=== PATIENT | male | born 1965 | race African-American/Black ===

== ENCOUNTER 2016-11-04 12:35 | Inpatient (IN) | payer OTHER ==
[2016-11-04 13:31] VITALS: BMI 23.6
--- NOTE | 2016-11-04 14:59 | HP ---
COWS - Scale Resting Pulse: 1= NE 81-100 Sweatin=Flushed/Facial Moisture Restless Observation: 3= Extraneous Movement Pupil Size: 2= Moderately Dilated Bone or Joint Aches: 2= Severe Diffuse Aches Runny Nose/ Eye Tearin= Runny Nose/Eyes GI Upset > 30mins: 3= Vomiting/Diarrhea Tremor Observation: 2= Slight Tremor Visible Yawning Observation: 2= >3x During Session Anxiety or Irritability: 2=Irritable/Anxious Goose Flesh Skin: 0=Smooth Skin COWS Score: 21 CIWA Score - CIWA Score Nausea/Vomitin Muscle Tremors: 3 Anxiety: 3 Agitation: 3 Paroxysmal Sweats: 2 Orientation: 0-Oriented Tacttile Disturbances: 2-Mild Itch/Numbness/Burn Auditory Disturbances: 2-Mild Harshness/Frighten Visual Disturbances: 2-Mild Sensitivity Headache: 2-Mild CIWA-Ar Total Score: 22 Admission ROS BHS - HPI Chief Complaint: I NEED HELP TO STOP USING HEROIN,ALCOHOL AND COCAINE Allergies/Adverse Reactions: Allergies Allergy/AdvReac Type Severity Reaction Status Date / Time No Known Allergies Allergy Verified 11/04/16 14:50 History of Present Illness: THIS 51 YEARS OLD MALE WITH HEROIN,COCAINE AND ALCOHOL DEPENDENCE,WITHDRAWAL SYMPTOM,LAST DETOX [facility] 09/09 MULTIPLE ADMISSIONS IN DETOX HTN ASTHMA LONGEST PERIOD FOR 6 YEARS Exam Limitations: No Limitations - Ebola screening Have you traveled outside of the country in the last 21 days: No Have you had contact with anyone from an Ebola affected area: No Have you been sick,other than usual withdrawal symptoms: No Do you have a fever: No - Review of Systems Constitutional: Chills, Diaphoresis, Loss of Appetite, Malaise, Night Sweats, Changes in sleep, Weakness, Unintentional Wgt. Loss EENT: reports: Tearing, Nose Congestion Cardiac: reports: No Symptoms Reported GI: reports: Diarrhea, Nausea, Vomiting, Abdominal cramping : reports: No Symptoms Reported Musculoskeletal: reports: Back Pain, Muscle Pain Integumentary: reports: Dryness Neuro: reports: Headache, Tremors Endocrine: reports: No Symptoms Reported Hematology: reports: No Symptoms Reported Psychiatric: reports: Anxious, Depressed, other (INSOMNIA) Patient History - Patient Medical History Hx Anemia: No Hx Asthma: No Hx Chronic Obstructive Pulmonary Disease (COPD): No Hx Cancer: No Hx Cardiac Disorders: No Hx Congestive Heart Failure: No Hx Hypertension: Yes (non compliance) Hx Hypercholesterolemia: No Hx Pacemaker: No HX Cerebrovascular Accident: No Hx Seizures: No Hx Dementia: No Hx Diabetes: No Hx Gastrointestinal Disorders: No Hx Liver Disease: No Hx Genitourinary Disorders: No Hx Sexually Transmitted Disorders: No Hx Renal Disease (ESRD): No Hx Thyroid Disease: No Hx Human Immunodeficiency Virus (HIV): No (LAST 08/10) Hx Hepatitis C: No Hx Depression: Yes (SEROQUEL IN THE PAST) Hx Suicide Attempt: No Hx Bipolar Disorder: Yes Hx Schizophrenia: No Other Medical History: NO SUICIDAL,NO HOMICIDAL - Patient Surgical History Past Surgical History: No Hx Neurologic Surgery: No Hx Cataract Extraction: No Hx Cardiac Surgery: No Hx Lung Surgery: No Hx Breast Surgery: No Hx Breast Biopsy: No Hx Abdominal Surgery: No Hx Appendectomy: No Hx Cholecystectomy: No Hx Genitourinary Surgery: No Hx Section: No Hx Orthopedic Surgery: No Anesthesia Reaction: No - PPD History Previous Implant?: Yes Documented Results: Negative w/proof Implanted On Prior [facility] Admission?: Yes Date: 12/21/15 Results: 0 mm PPD to be Administered?: No - Smoking Cessation Smoking history: Current every day smoker Have you smoked in the past 12 months: Yes Aproximately how many cigarettes per day: 15 Hx Chewing Tobacco Use: No Initiated information on smoking cessation: Yes 'Breaking Loose' booklet given: 11/04/16 - Substance & Tx. History Hx Alcohol Use: Yes Hx Substance Use: Yes Substance Use Type: Alcohol, Cocaine, Heroin Hx Substance Use Treatment: Yes ([facility] 09/09) Family Disease History - Family Disease History Family Disease History: Diabetes: Grandparent, CA: Mother (BONE CA.), Other: Father (GOUT,CATARACT), Brother (ASTHMA) Admission Physical Exam BHS - Vital Signs Vital Signs: Vital Signs - 24 hr 11/04/16 13:28 Temperature 96 F L Pulse Rate 83 Respiratory 18 Rate Blood Pressure 154/92 - Physical General Appearance: Yes: Moderate Distress, Tremorous, Irritable, Sweating, Anxious HEENTM: Yes: Nasal Congestion Respiratory: Yes: Lungs Clear Neck: Yes: Within Normal Limits Breast: Yes: Within Normal Limits Cardiology: Yes: Within Normal Limits, Regular Rhythm, Regular Rate, S1, S2 Abdominal: Yes: Normal Bowel Sounds, Non Tender, Flat, Soft, Organomegaly Genitourinary: Yes: Within Normal Limits Back: Yes: Muscle Spasm Musculoskeletal: Yes: Joint Stiffness, Muscle Pain Extremities: Yes: Tremors Neurological: Yes: Within Normal Limits, broach grinder II-XII NML intact, Fully Oriented, Alert, Motor Strength 5/5 Integumentary: Yes: Dry Lymphatic: Yes: Within Normal Limits - Diagnostic (1) Alcohol dependence with uncomplicated withdrawal Current Visit: No Status: Acute (2) Cocaine dependence Current Visit: No Status: Acute Qualifiers: Substance use status: uncomplicated Qualified Code(s): F14.20 - Cocaine dependence, uncomplicated (3) Insomnia Current Visit: No Status: Acute (4) Nicotine dependence Current Visit: No Status: Acute Qualifiers: Nicotine product type: cigarettes Substance use status: uncomplicated Qualified Code(s): F17.210 - Nicotine dependence, cigarettes, uncomplicated (5) Opioid dependence with withdrawal Current Visit: No Status: Acute (6) Hypertension Current Visit: No Status: Chronic Qualifiers: Hypertension type: essential hypertension Qualified Code(s): I10 - Essential (primary) hypertension (7) PTSD (post-traumatic stress disorder) Current Visit: No Status: Suspected Comment: Historical diagnosis. (8) Anxiety and depression Current Visit: Yes Status: Acute Cleared for Admission [facility] - Detox or Rehab [facility] Level of Care: Medically Managed Detox Regimen/Protocol: Methadone/Librium S Breath Alcohol Content Breath Alcohol Content: 0 Urine Drug Screen - Results Drug Screen Negative: No Urine Drug Screen Results: CECI-Cocaine, OPI-Opiates, BZO-Benzodiazepines, MTD- Methadone, TCA-Tricyclic Antidepress
[2016-11-04] MEDS ORDERED: P-EPHED 60MG/TRIPROLIDI 2.5MG TABLET PO PRN (15:10)
[2016-11-04] MEDS ORDERED: IBUPROFEN 400 MG TABLET (FP) PO PRN (15:10)
[2016-11-04] MEDS ORDERED: guaiFENesin/D-METHORPHAN HB 10 ML UNIT-DOSE CUPS PO PRN (15:10)
[2016-11-04] MEDS ORDERED: diphenhydrAMINE HCL 50 MG CAPSULE PO PRN (15:10)
[2016-11-04] MEDS ORDERED: MAG HYDROX/AL HYDROX/SIMETH 30 ML UNIT-DOSE CUP PO PRN (15:10)
[2016-11-04] MEDS ORDERED: ACETAMINOPHEN 325 MG TABLET (FP) PO PRN (15:10)
[2016-11-04] MEDS ORDERED: MAGNESIUM CITRATE 300 ML BOTTLE PO PRN (15:10)
[2016-11-04] MEDS ORDERED: MAGNESIUM HYDROX 2400MG/30ML ORAL SUSPENSION 30 ML CUP PO PRN (15:10)
[2016-11-04] MEDS ORDERED: hydrOXYzine PAMOATE 25 MG CAPSULE (FP) PO PRN (15:10)
[2016-11-04] MEDS ORDERED: MENTHOL/PHENOL 1 EACH UD MM PRN (15:10)
[2016-11-04] MEDS ORDERED: chlordiazePOXIDE HCL 25 MG CAPSULE PO PRN (15:10)
[2016-11-04] MEDS ORDERED: LOPERAMIDE HCL 2 MG CAPSULE PO PRN (15:10)
[2016-11-04] MEDS ORDERED: ALBUTEROL SO4 6.7 GM HFA INHALER IH PRN (15:16)
[2016-11-04] MEDS ORDERED: CYCLOBENZAPRINE HCL 10 MG TABLET (FP) PO PRN (15:18)
[2016-11-04] MEDS ORDERED: METHADONE HCL 10 MG TABLET (FOR DETOX USE ONLY) PO ONE ×2 (15:45→23:00)
[2016-11-04] MEDS ORDERED: chlordiazePOXIDE HCL 25 MG CAPSULE PO ONE (15:45)
--- NOTE | 2016-11-04 17:42 | CONSULT ---
[facility] Psychiatric Consult - Data Date of interview: 11/04/16 Admission source: [facility] Identifying data: Readmission to [facility] for this 51 y/o AA male seeking detox treatment on for alcohol,cocaine and heroin dependence.Patient is single,a father of two (lost a son in February 2016),homeless,currently unemployed and supported on food stamps. Substance Abuse History: - Smoking Cessation. Smoking history: Current every day smoker. Have you smoked in the past 12 months: Yes. Aproximately how many cigarettes per day: 15. Hx Chewing Tobacco Use: No. Initiated information on smoking cessation: Yes. 'Breaking Loose' booklet given: 11/04/16. - Substance & Tx. History. Hx Alcohol Use: Yes. Hx Substance Use: Yes. Substance Use Type : Alcohol, Cocaine, Heroin. Hx Substance Use Treatment: Yes ([facility] 09/09 ). Patient aknowledges this pattern of substance use in this interview. Medical History: Significant for a history of hypertension. Psychiatric History: History of multiple psychiatric hospitalizations ([facility] and [facility]) .Diagnosed with PTSD and MDD.Mr Mast is receiving outpatient psychiatric services at the [facility] program located in [facility].Medications: seroquel 50 mg/hs + ambien 10 mg/hs.Patient admits to weeks of non-adherence to this regimen.Denies suicide attempts. Physical/Sexual Abuse/Trauma History: Patient denies. Additional Comment: Urine Drug Screen Results: CECI-Cocaine, OPI-Opiates, BZO- Benzodiazepines, MTD-Methadone, TCA-Tricyclic Antidepressant.Noted. Mental Status Exam - Mental Status Exam Alert and Oriented to: Time, Place, Person Cognitive Function: Good Patient Appearance: Well Groomed Mood: Nervous, Anxious, Hopeful Affect: Mood Congruent Patient Behavior: Fatigued, Talkative, Appropriate, Cooperative Speech Pattern: Clear, Appropriate Voice Loudness: Normal Thought Process: Goal Oriented Thought Disorder: Not Present Hallucinations: Denies Suicidal Ideation: Denies Homicidal Ideation: Denies Insight/Judgement: Poor Sleep: Poorly, Difficulty falling asleep Appetite: Good Muscle strength/Tone: Normal Gait/Station: Normal Psychiatric Findings - Problem List (Stella 1, 2,3) (1) Alcohol dependence with uncomplicated withdrawal Current Visit: Yes Status: Acute (2) Cocaine dependence Current Visit: Yes Status: Acute Qualifiers: Substance use status: uncomplicated Qualified Code(s): F14.20 - Cocaine dependence, uncomplicated (3) Nicotine dependence Current Visit: Yes Status: Acute Qualifiers: Nicotine product type: cigarettes Substance use status: uncomplicated Qualified Code(s): F17.210 - Nicotine dependence, cigarettes, uncomplicated (4) Opioid dependence with withdrawal Current Visit: Yes Status: Acute (5) Sedative, hypnotic or anxiolytic abuse, continuous Current Visit: Yes Status: Acute (6) Insomnia Current Visit: No Status: Acute (7) Substance induced mood disorder Current Visit: Yes Status: Acute (8) PTSD (post-traumatic stress disorder) Current Visit: No Status: Suspected Comment: Historical diagnosis. - Initial Treatment Plan Initial Treatment Plan: Psycheducation.Detoxification in progress.Patient declines to take zoloft.Wants ambien 10 mg at bedtime.Ordered.Patient is made aware of the risk of parasomnias.Agrees with careplan.Observation.
[2016-11-04] MEDS: NICOTINE 21 MG/24 HOURS TOPICAL PATCH TD SCH (17:49)
[2016-11-04] MEDS: chlordiazePOXIDE HCL 25 MG CAPSULE PO SCH ×2 (17:49→22:32)
[2016-11-04] MEDS: cloNIDine HCL 0.1 MG TABLET PO SCH (22:33)
[2016-11-04] MEDS: THIAMINE HCL 100 MG TABLET (FP) PO SCH (22:33)
[2016-11-05 03:18] LABS: URINE APPEARANCE CLEAR; URINE BILIRUBIN NEGATIVE (NEGATIVE); URINE BLOOD NEGATIVE (NEGATIVE); URINE COLOR YELLOW; URINE GLUCOSE (UA) NEGATIVE (NEGATIVE); URINE KETONE NEGATIVE (NEGATIVE); URINE LEUK ESTERASE NEGATIVE (NEGATIVE); URINE NITRITE NEGATIVE (NEGATIVE); URINE PROTEIN NEGATIVE (NEGATIVE); URINE UROBILINOGEN NEGATIVE E.U./dl (0.2-1.0)
[2016-11-05] MEDS: chlordiazePOXIDE HCL 25 MG CAPSULE PO SCH ×4 (06:03→22:45)
[2016-11-05] MEDS ORDERED: METHADONE HCL 10 MG TABLET (FOR DETOX USE ONLY) PO SCH (10:00)
--- NOTE | 2016-11-05 10:26 | PN ---
S CIWA - CIWA Score Nausea/Vomitin Muscle Tremors: 3 Anxiety: 3 Agitation: 2 Paroxysmal Sweats: 1-Minimal Palms Moist Orientation: 0-Oriented Tacttile Disturbances: 1-Very Mild Itch/Numbness Auditory Disturbances: 1-Very Mild Visual Disturbances: 1-Very Mild Sensitivity Headache: 2-Mild CIWA-Ar Total Score: 17 BHS COWS - Scale Resting Pulse: 0= MD 80 or Below Sweatin=Flushed/Facial Moisture Restless Observation: 3= Extraneous Movement Pupil Size: 1= Pupils >than Normal Bone or Joint Aches: 2= Severe Diffuse Aches Runny Nose/ Eye Tearin= Runny Nose/Eyes GI Upset > 30mins: 3= Vomiting/Diarrhea Tremor Observation of Outstretched Hands: 2= Slight Tremor Visible Yawning Observation: 1= 1-2x During Session Anxiety or Irritability: 2=Irritable/Anxious Goose Flesh Skin: 0=Smooth Skin COWS Score: 18 [facility] Progress Note (SOAP) Subjective: ALRT,IRRITABLE,ANXIOUS,INTERRUPTED SLEEP,TREMOR,PAIN IN THE BODY AND BACK Objective: 11/05/16 10:25 Vital Signs Temperature 97.8 F 11/05/16 09:37 Pulse Rate 54 L 11/05/16 09:37 Respiratory Rate 18 11/05/16 09:37 Blood Pressure 121/72 11/05/16 09:37 O2 Sat by Pulse Oximetry (%) ELG NSR,NORMAL ECG Laboratory Last Values Urine Color Yellow 11/04/16 23:04 Urine Appearance Clear 11/04/16 23:04 Urine pH 6.0 (5.0-8.0) 11/04/16 23:04 Ur Specific [place] 1.017 (1.001-1.035) 11/04/16 23:04 Urine Protein Negative (NEGATIVE) 11/04/16 23:04 Urine Glucose (UA) Negative (NEGATIVE) 11/04/16 23:04 Urine Ketones Negative (NEGATIVE) 11/04/16 23:04 Urine Blood Negative (NEGATIVE) 11/04/16 23:04 Urine Nitrite Negative (NEGATIVE) 11/04/16 23:04 Urine Bilirubin Negative (NEGATIVE) 11/04/16 23:04 Urine Urobilinogen Negative E.U./dl (0.2-1.0) 11/04/16 23:04 Ur Leukocyte Esterase Negative (NEGATIVE) 11/04/16 23:04 LABS PENDING Assessment: 11/05/16 10:25 WITHDRAWAL SYMPTOM Plan: CONTINUE DETOX
[2016-11-05] MEDS: amLODIPine BESYLATE 10 MG TABLET (FP) PO SCH (10:34)
[2016-11-05] MEDS: cloNIDine HCL 0.1 MG TABLET PO SCH ×2 (10:34→22:44)
[2016-11-05] MEDS: PRENATAL VITAMINS W/ FOLIC ACID TABLET (FP) PO SCH (10:34)
[2016-11-05] MEDS: NICOTINE 21 MG/24 HOURS TOPICAL PATCH TD SCH (10:37)
[2016-11-05 11:10] LABS: ALBUMIN 3.9 g/dl (3.4-5.0); ALK PHOS 83 U/L (45-117); ANION GAP 9 (8-16); BILIRUBIN,TOTAL 0.4 mg/dL (0.2-1.0); CALCIUM 9.1 mg/dL (8.5-10.1); CO2 27 mmol/L (21-32); CREATININE 0.9 mg/dL (0.7-1.3); GLUCOSE,RANDOM 84 mg/dL (74-106); SGOT/AST 21 U/L (15-37); SGPT/ALT 21 U/L (12-78); TOT PROT 7.5 g/dl (6.4-8.2)
[2016-11-05 11:15] LABS: MCHC 33.3 g/dl (32.0-35.9); MEAN CELL VOLUME 90.3 fl (80-96); MEAN PLT VOLUME 9.3 fl (7.5-11.1); PLATELET COUNT 214 K/MM3 (134-434); WHITE BLOOD COUNT 9.4 K/mm3 (4.0-10.0)
[2016-11-05 12:52] LABS: HIV 1 & 2 AB NEGATIVE; HIV 1 AGp24 NEGATIVE
--- NOTE | 2016-11-05 13:40 | EKG ---
Test Reason : Blood Pressure : / mmHG Vent. Rate : 069 BPM Atrial Rate : 069 BPM P-R Int : 134 ms QRS Dur : 094 ms QT Int : 404 ms P-R-T Axes : 049 071 049 degrees QTc Int : 432 ms NORMAL SINUS RHYTHM NON-SPECIFIC INTRA-VENTRICULAR CONDUCTION DELAY NO PREVIOUS ECGS AVAILABLE Confirmed by ALTAGRACIA CARTER MD ([id number]) on 11/05/2016 1:39:51 PM Referred By: Confirmed By:ALTAGRACIA CARTER MD
[2016-11-05] MEDS: THIAMINE HCL 100 MG TABLET (FP) PO SCH (22:44)
[2016-11-06] MEDS: chlordiazePOXIDE HCL 25 MG CAPSULE PO SCH ×2 (05:54→10:30)
[2016-11-06] MEDS: PRENATAL VITAMINS W/ FOLIC ACID TABLET (FP) PO SCH (10:29)
[2016-11-06] MEDS: METHADONE HCL 5 MG TABLET (FOR DETOX USE ONLY) PO SCH (10:30)
[2016-11-06] MEDS: cloNIDine HCL 0.1 MG TABLET PO SCH ×2 (10:30→22:30)
[2016-11-06] MEDS: amLODIPine BESYLATE 10 MG TABLET (FP) PO SCH (10:30)
[2016-11-06] MEDS: NICOTINE 21 MG/24 HOURS TOPICAL PATCH TD SCH (10:30)
--- NOTE | 2016-11-06 13:00 | PN ---
S CIWA - CIWA Score Nausea/Vomitin-No Nausea/No Vomiting Muscle Tremors: 4-Moderate,w/Arms Extend Anxiety: 4-Mod. Anxious/Guarded Agitation: 4-Moderately Restless Paroxysmal Sweats: 3 Orientation: 0-Oriented Tacttile Disturbances: 0-None Auditory Disturbances: 0-None Visual Disturbances: 0-None Headache: 0-None Present CIWA-Ar Total Score: 15 BHS COWS - Scale Resting Pulse: 0= [place] 80 or Below Sweatin=Flushed/Facial Moisture Restless Observation: 1= Difficult to Sit Still Pupil Size: 0= Normal to Room Light Bone or Joint Aches: 1= Mild Discomfort Runny Nose/ Eye Tearin= Runny Nose/Eyes GI Upset > 30mins: 2= Nausea/Diarrhea Tremor Observation of Outstretched Hands: 2= Slight Tremor Visible Yawning Observation: 1= 1-2x During Session Anxiety or Irritability: 2=Irritable/Anxious Goose Flesh Skin: 0=Smooth Skin COWS Score: 13 S Progress Note (SOAP) Subjective: sweating,interrupted sleep,restless,muscle aches/spasm,anxiety. Objective: 11/06/16 12:59 Vital Signs - 8 hr 11/06/16 11/06/16 06:00 10:00 Temperature 97.2 F L 96.1 F L Pulse Rate 48 L 56 L Respiratory 18 18 Rate Blood Pressure 105/61 129/69 Laboratory Tests 11/04/16 11/05/16 11/05/16 23:04 06:20 06:20 WBC 9.4 RBC 4.98 Hgb 15.0 Hct 45.0 MCV 90.3 MCHC 33.3 RDW 15.0 Plt Count 214 MPV 9.3 Sodium Potassium Chloride Carbon Dioxide Anion Gap BUN Creatinine Creat Clearance w eGFR Random Glucose Calcium Total Bilirubin AST ALT Alkaline Phosphatase Total Protein Albumin Urine Color Yellow Urine Appearance Clear Urine pH 6.0 Ur Specific [place] 1.017 Urine Protein Negative Urine Glucose (UA) Negative Urine Ketones Negative Urine Blood Negative Urine Nitrite Negative Urine Bilirubin Negative Urine Urobilinogen Negative Ur Leukocyte Esterase Negative RPR Titer HIV 1&2 Antibody Screen Negative HIV P24 Antigen Negative 11/05/16 11/05/16 06:20 06:20 WBC RBC Hgb Hct MCV MCHC RDW Plt Count MPV Sodium 141 Potassium 4.0 Chloride 105 Carbon Dioxide 27 Anion Gap 9 BUN 10 D Creatinine 0.9 Creat Clearance w eGFR > 60 Random Glucose 84 D Calcium 9.1 Total Bilirubin 0.4 AST 21 ALT 21 D Alkaline Phosphatase 83 Total Protein 7.5 Albumin 3.9 Urine Color Urine Appearance Urine pH Ur Specific [place] Urine Protein Urine Glucose (UA) Urine Ketones Urine Blood Urine Nitrite Urine Bilirubin Urine Urobilinogen Ur Leukocyte Esterase RPR Titer Nonreactive HIV 1&2 Antibody Screen HIV P24 Antigen labs noted Assessment: 11/06/16 12:59 withdrawal sx. Plan: continue detox
[2016-11-06] MEDS ORDERED: INSULIN (NOVOLOG) ASPART 100 UNITS/ML 10ML VIAL ONE (16:56)
[2016-11-06] MEDS: chlordiazePOXIDE 5 MG CAPSULE PO SCH ×2 (17:45→22:30)
[2016-11-06] MEDS: THIAMINE HCL 100 MG TABLET (FP) PO SCH (22:30)
[2016-11-07] MEDS: chlordiazePOXIDE 5 MG CAPSULE PO SCH ×2 (05:23→10:33)
[2016-11-07] MEDS: cloNIDine HCL 0.1 MG TABLET PO SCH (10:33)
[2016-11-07] MEDS: NICOTINE 21 MG/24 HOURS TOPICAL PATCH TD SCH (10:34)
[2016-11-07] MEDS: PRENATAL VITAMINS W/ FOLIC ACID TABLET (FP) PO SCH (10:34)
[2016-11-07] MEDS: METHADONE HCL 5 MG TABLET (FOR DETOX USE ONLY) PO SCH (10:34)
[2016-11-07] MEDS: amLODIPine BESYLATE 10 MG TABLET (FP) PO SCH (10:40)
--- NOTE | 2016-11-07 11:03 | PN ---
BHS Progress Note (SOAP) Subjective: interrupted sleep, sweats, irritable Objective: 11/07/16 11:00 Vital Signs Temperature 95.7 F L 11/07/16 10:00 Pulse Rate 58 L 11/07/16 10:00 Respiratory Rate 16 11/07/16 10:00 Blood Pressure 120/54 11/07/16 10:00 O2 Sat by Pulse Oximetry (%) Laboratory Tests 11/04/16 11/05/16 11/05/16 23:04 06:20 06:20 WBC 9.4 RBC 4.98 Hgb 15.0 Hct 45.0 MCV 90.3 MCHC 33.3 RDW 15.0 Plt Count 214 MPV 9.3 Sodium Potassium Chloride Carbon Dioxide Anion Gap BUN Creatinine Creat Clearance w eGFR Random Glucose Calcium Total Bilirubin AST ALT Alkaline Phosphatase Total Protein Albumin Urine Color Yellow Urine Appearance Clear Urine pH 6.0 Ur Specific [place] 1.017 Urine Protein Negative Urine Glucose (UA) Negative Urine Ketones Negative Urine Blood Negative Urine Nitrite Negative Urine Bilirubin Negative Urine Urobilinogen Negative Ur Leukocyte Esterase Negative RPR Titer HIV 1&2 Antibody Screen Negative HIV P24 Antigen Negative 11/05/16 11/05/16 06:20 06:20 WBC RBC Hgb Hct MCV MCHC RDW Plt Count MPV Sodium 141 Potassium 4.0 Chloride 105 Carbon Dioxide 27 Anion Gap 9 BUN 10 D Creatinine 0.9 Creat Clearance w eGFR > 60 Random Glucose 84 D Calcium 9.1 Total Bilirubin 0.4 AST 21 ALT 21 D Alkaline Phosphatase 83 Total Protein 7.5 Albumin 3.9 Urine Color Urine Appearance Urine pH Ur Specific [place] Urine Protein Urine Glucose (UA) Urine Ketones Urine Blood Urine Nitrite Urine Bilirubin Urine Urobilinogen Ur Leukocyte Esterase RPR Titer Nonreactive HIV 1&2 Antibody Screen HIV P24 Antigen pt aox3 in nad ambulating , irritable Assessment: 11/07/16 11:01 withdrawal sx;s Plan: cont. detox increase fluids clondine prn
[2016-11-07] MEDS ORDERED: chlordiazePOXIDE HCL 10 MG CAPSULE PO SCH (17:00)
[2016-11-07 17:42] VITALS: BP 117/65; PULSE 58; TEMP 96.8
--- NOTE | 2016-11-07 20:23 | DS ---
[id number] Present History: Alcohol Dependence, Opioid Dependence Additional Comments: received nurse call, patient wants to sign out, family was called by the patient for warp picker patient refuses to wait face to face with the provider Pertinent Past History: NICOTINE DEPENDENCE HYPERTENSION ASTHMA - Physical Exam Results Vital Signs: Vital Signs Temperature 96.8 F L 11/07/16 17:42 Pulse Rate 58 L 11/07/16 17:42 Respiratory Rate 16 11/07/16 17:42 Blood Pressure 117/65 11/07/16 17:42 O2 Sat by Pulse Oximetry (%) Pertinent Admission Physical Exam Findings: WITHDRAWAL SX Laboratory Last Values WBC 9.4 K/mm3 (4.0-10.0) 11/05/16 06:20 RBC 4.98 M/mm3 (4.00-5.60) 11/05/16 06:20 Hgb 15.0 GM/dL (11.7-16.9) 11/05/16 06:20 Hct 45.0 % (35.4-49) 11/05/16 06:20 MCV 90.3 fl (80-96) 11/05/16 06:20 MCHC 33.3 g/dl (32.0-35.9) 11/05/16 06:20 RDW 15.0 % (11.9-15.9) 11/05/16 06:20 Plt Count 214 K/MM3 (134-434) 11/05/16 06:20 MPV 9.3 fl (7.5-11.1) 11/05/16 06:20 Sodium 141 mmol/L (136-145) 11/05/16 06:20 Potassium 4.0 mmol/L (3.5-5.1) 11/05/16 06:20 Chloride 105 mmol/L (98-107) 11/05/16 06:20 Carbon Dioxide 27 mmol/L (21-32) 11/05/16 06:20 Anion Gap 9 (8-16) 11/05/16 06:20 BUN 10 mg/dL (7-18) D 11/05/16 06:20 Creatinine 0.9 mg/dL (0.7-1.3) 11/05/16 06:20 Creat Clearance w eGFR > 60 (>60) 11/05/16 06:20 Random Glucose 84 mg/dL (74-106) D 11/05/16 06:20 Calcium 9.1 mg/dL (8.5-10.1) 11/05/16 06:20 Total Bilirubin 0.4 mg/dL (0.2-1.0) 11/05/16 06:20 AST 21 U/L (15-37) 11/05/16 06:20 ALT 21 U/L (12-78) D 11/05/16 06:20 Alkaline Phosphatase 83 U/L (45-117) 11/05/16 06:20 Total Protein 7.5 g/dl (6.4-8.2) 11/05/16 06:20 Albumin 3.9 g/dl (3.4-5.0) 11/05/16 06:20 Urine Color Yellow 11/04/16 23:04 Urine Appearance Clear 11/04/16 23:04 Urine pH 6.0 (5.0-8.0) 11/04/16 23:04 Ur Specific [place] 1.017 (1.001-1.035) 11/04/16 23:04 Urine Protein Negative (NEGATIVE) 11/04/16 23:04 Urine Glucose (UA) Negative (NEGATIVE) 11/04/16 23:04 Urine Ketones Negative (NEGATIVE) 11/04/16 23:04 Urine Blood Negative (NEGATIVE) 11/04/16 23:04 Urine Nitrite Negative (NEGATIVE) 11/04/16 23:04 Urine Bilirubin Negative (NEGATIVE) 11/04/16 23:04 Urine Urobilinogen Negative E.U./dl (0.2-1.0) 11/04/16 23:04 Ur Leukocyte Esterase Negative (NEGATIVE) 11/04/16 23:04 RPR Titer Nonreactive (NONREACTIVE) 11/05/16 06:20 HIV 1&2 Antibody Screen Negative 11/05/16 06:20 HIV P24 Antigen Negative 11/05/16 06:20 LAB NOTED - Treatment Hospital Course: Detox Protocol Followed, Responded well - Medication Discharge Medications: Ambulatory Orders Quetiapine Fumarate [Seroquel -] 50 mg PO HS #30 tablet 08/15/16 Albuterol Sulfate Inhaler - [Ventolin HFA Inhaler -] 2 inh IH Q4H PRN #1 inhaler 08/16/16 Amlodipine Besylate [Norvasc -] 10 mg PO DAILY #30 tablet 08/16/16 Cyclobenzaprine HCl [Flexeril -] 10 mg PO TID PRN #20 tablet 08/16/16 Clonidine HCl 0.2 mg PO BID 11/04/16 - AMA Did Patient Leave Against Medical Advice: Yes
[2016-11-08] MEDS ORDERED: METHADONE HCL 10 MG TABLET (FOR DETOX USE ONLY) PO SCH (10:00)
[2016-11-09] MEDS ORDERED: METHADONE HCL 5 MG TABLET (FOR DETOX USE ONLY) PO SCH (06:00)
== END 2016-11-07 19:28 | disposition left against medical advice (07) | DRG 770 ==
LOC: YASAS 12:35 → Y6N 15:13
PROVIDERS: ADMIT Internal Medicine; ATTEND Internal Medicine
PROC: HZ2ZZZZ Detoxification Services for Substance Abuse Treatment (ICD-10-PCS; principal; 2016-11-07)
DX: F11.23 Opioid dependence with withdrawal (principal); F10.230 Alcohol dependence with withdrawal, uncomplicated; F14.20 Cocaine dependence, uncomplicated; F17.210 Nicotine dependence, cigarettes, uncomplicated; F13.10 Sedative, hypnotic or anxiolytic abuse, uncomplicated; F19.24 Other psychoactive substance dependence with psychoactive substance-induced mood disorder; F41.8 Other specified anxiety disorders; F43.10 Post-traumatic stress disorder, unspecified; G47.00 Insomnia, unspecified
CPT/HCPCS: 36415; 80053; 81003; 85027; 86593; 87389; 93005; 93010

== ENCOUNTER 2019-11-18 11:43 | Inpatient (IN) | payer OTHER ==
--- NOTE | 2019-11-18 11:59 | BHS.RME ---
Substance Use & Tx History - Substance Use History Alcohol Substance amount: 6-8 beers Frequency of use: Daily Substance route: Oral Date of Last Use: 11/18/19 (2 am) Opiates (Heroin) Substance amount: 8-10 bags Frequency of use: Daily Substance route: Inhalation (ex: sniffing or snorting) Date of Last Use: 11/18/19 Cocaine (Powder) Substance amount: 1 gram Frequency of use: Less than 3 times per week Substance route: Inhalation (ex: sniffing or snorting) Date of Last Use: 11/17/19 Physical/Psych/Mental Status - Behavior General Behavior: Increased activity (restlessness, agitation) Eye Contact: Normal - Cooperativeness Cooperativeness: Cooperative - Thinking Thought Processes: Tight, Logical, Goal Directed Thought content: Future oriented - Physical Health Problems Is patient presently having any pain?: No Does patient presently have any injuries (include location): No Does patient currently have a fever: No Is patient : No COWS - Scale Resting Pulse: 0= [place] 80 or Below Sweatin= Beads of Sweat on Face Restless Observation: 1= Difficult to Sit Still Pupil Size: 0= Normal to Room Light Bone or Joint Aches: 1= Mild Discomfort Runny Nose/ Eye Tearin= Runny Nose/Eyes GI Upset > 30mins: 1= Stomach Cramp Tremor Observation: 1= Tremor Finger, Not Seen Yawning Observation: 1= 1-2x During Session Anxiety or Irritability: 1=Feels Anxious/Irritable Goose Flesh Skin: 3=Piloerection COWS Score: 14 CIWA Nausea/Vomitin-Mild Nausea/No Vomiting Muscle Tremors: 2 Anxiety: 3 Agitation: 1-Slight > Activity Paroxysmal Sweats: 4-Forehead w/Sweat Beads Orientation: 1-Uncertain about Date Tacttile Disturbances: 0-None Auditory Disturbances: 0-None Visual Disturbances: 0-None Headache: 1-Very Mild CIWA-Ar Total Score: 13
[2019-11-18 13:13] VITALS: BMI 21.7
--- NOTE | 2019-11-18 13:45 | HP ---
COWS - Scale Resting Pulse: 0= ID 80 or Below Sweatin= Beads of Sweat on Face Restless Observation: 1= Difficult to Sit Still Pupil Size: 0= Normal to Room Light Bone or Joint Aches: 1= Mild Discomfort Runny Nose/ Eye Tearin= Runny Nose/Eyes GI Upset > 30mins: 1= Stomach Cramp Tremor Observation: 1= Tremor [place], Not Seen Yawning Observation: 1= 1-2x During Session Anxiety or Irritability: 1=Feels Anxious/Irritable Goose Flesh Skin: 3=Piloerection COWS Score: 14 CIWA Score Nausea/Vomitin-Mild Nausea/No Vomiting Muscle Tremors: 2 Anxiety: 3 Agitation: 1-Slight > Activity Paroxysmal Sweats: 4-Forehead w/Sweat Beads Orientation: 1-Uncertain about Date Tacttile Disturbances: 0-None Auditory Disturbances: 0-None Visual Disturbances: 0-None Headache: 1-Very Mild CIWA-Ar Total Score: 13 - Admission Criteria OASAS Guidelines: Admission for Medically Managed Detox: Requires at least one of the followin. CIWA greater than 12 2. Seizures within the past 24 hours 3. Delirium tremens within the past 24 hours 4. Hallucinations within the past 24 hours 5. Acute intervention needed for co occurring medical disorder 6. Acute intervention needed for co occurring psychiatric disorder 7. Severe withdrawal that cannot be handled at a lower level of care (continued vomiting, continued diarrhea, abnormal vital signs) requiring intravenous medication and/or fluids 8. Admitting History and Physical - Admission Chief Complaint: heroin and alcohol withdrawal History of Present Illness: this 54 years old male with heroin alcohol and cocaine dependence,seeking detox, multiple admissions last [facility] in 03/13 hypertension longest sobriety 6 years History Source: Patient Limitations to Obtaining History: No Limitations - Past Medical History Cardiovascular: Yes: HTN Psych: Yes: Other (insomnia) - Smoking History Smoking history: Current every day smoker Have you smoked in the past 12 months: Yes Aproximately how many cigarettes per day: 15 - Alcohol/Substance Use Hx Alcohol Use: Yes History of Substance Use: reports: Cocaine, Heroin - Social History Usual Living Arrangement: Yes: Other (homeless) ADL: Support Services Occupation: unemployed History of Recent Travel: No Admission ROS BHS - HPI Chief Complaint: i am here for detox from heroin,alcohol and cocaine Allergies/Adverse Reactions: Allergies Allergy/AdvReac Type Severity Reaction Status Date / Time No Known Allergies Allergy Verified 11/18/19 13:07 History of Present Illness: this 54 years old male with heroin,alcohol and cocaine depnendence,seeking detox ,withdrawal symptom, multiple admissions in detox,last 03/13 [facility] denied seizure denied syncope longest sobriety 6 years plan for rehab after detox insomnia Exam Limitations: No Limitations - Ebola screening Have you traveled outside of the country in the last 21 days: Yes Have you had contact with anyone from an Ebola affected area: No Have you been sick,other than usual withdrawal symptoms: No Do you have a fever: No - Review of Systems Constitutional: Loss of Appetite, Malaise, Night Sweats, Changes in sleep, Weakness, Unintentional Wgt. Loss EENT: reports: Tearing, Nose Congestion Respiratory: reports: No Symptoms reported Cardiac: reports: No Symptoms Reported GI: reports: Diarrhea, Nausea, Vomiting, Abdominal cramping : reports: No Symptoms Reported Musculoskeletal: reports: Back Pain, Muscle Pain Integumentary: reports: Dryness Neuro: reports: Headache, Tremors Endocrine: reports: No Symptoms Reported Hematology: reports: No Symptoms Reported Psychiatric: reports: No Sypmtoms Reported, Judgement Intact, Mood/Affect Appropiate, Orientated x3, other (insomnia) Patient History - Patient Medical History Hx Anemia: No Hx Asthma: No Hx Chronic Obstructive Pulmonary Disease (COPD): No Hx Cancer: No Hx Cardiac Disorders: No Hx Congestive Heart Failure: No Hx Hypertension: Yes (non compliance) Hx Hypercholesterolemia: No Hx Pacemaker: No HX Cerebrovascular Accident: No Hx Seizures: No Hx Dementia: No Hx Diabetes: No Hx Gastrointestinal Disorders: No Hx Liver Disease: No Hx Genitourinary Disorders: No Hx Sexually Transmitted Disorders: No Hx Renal Disease (ESRD): No Hx Thyroid Disease: No Hx Human Immunodeficiency Virus (HIV): No (LAST 09/12 negative) Hx Hepatitis C: No Hx Depression: Yes (SEROQUEL IN THE PAST) Hx Suicide Attempt: No Hx Bipolar Disorder: No Hx Schizophrenia: No Other Medical History: insomnia,no suicidal.no homicidal - Patient Surgical History Past Surgical History: No Hx Neurologic Surgery: No Hx Cataract Extraction: No Hx Cardiac Surgery: No Hx Lung Surgery: No Hx Breast Surgery: No Hx Breast Biopsy: No Hx Abdominal Surgery: No Hx Appendectomy: No Hx Cholecystectomy: No Hx Genitourinary Surgery: No Hx Section: No Hx Orthopedic Surgery: No Anesthesia Reaction: No - PPD History Previous Implant?: Yes Documented Results: Negative w/o proof Implanted On Prior [facility] Admission?: Yes Date: 12/21/15 Results: 0 mm PPD to be Administered?: Yes - Smoking Cessation Smoking history: Current every day smoker Have you smoked in the past 12 months: Yes Aproximately how many cigarettes per day: 15 Hx Chewing Tobacco Use: No Initiated information on smoking cessation: Yes 'Breaking Loose' booklet given: 11/18/19 - Substance & Tx. History Hx Alcohol Use: Yes Hx Substance Use: Yes Substance Use Type: Alcohol, Cocaine, Heroin Hx Substance Use Treatment: Yes ([facility] 03/13) - Substances abused Alcohol Substance route: Oral Frequency: Daily Amount used: 6-8 cans of beer, 1 pint of vodka Age of first use: 16 Date of last use: 11/18/19 Heroin Substance route: Inhalation Frequency: Daily Amount used: 8-10 bags Age of first use: 38 Date of last use: 11/18/19 Cocaine Substance route: Inhalation Frequency: 3-6 times per week Amount used: 1 gram Age of first use: 33 Date of last use: 11/17/19 Admission Physical Exam S - Vital Signs Vital Signs: Vital Signs - 24 hr 11/18/19 13:10 Temperature 97.5 F L Pulse Rate 78 Respiratory 20 Rate Blood Pressure 162/94 - Physical General Appearance: Yes: Moderate Distress, Tremorous, Irritable, Sweating, Anxious HEENTM: Yes: Normal ENT Inspection, [place], Pharynx Normal Respiratory: Yes: Within Normal Limits, Lungs Clear, Normal Breath Sounds Neck: Yes: Within Normal Limits, Supple, Trachea in good position Breast: Yes: Within Normal Limits Cardiology: Yes: Within Normal Limits, Regular Rhythm, Regular Rate, S1, S2 Abdominal: Yes: Within Normal Limits, Normal Bowel Sounds, Non Tender, Soft Genitourinary: Yes: Within Normal Limits Back: Yes: Muscle Spasm Musculoskeletal: Yes: Back pain, Joint Stiffness, Muscle Pain Extremities: Yes: Within Normal Limits, Normal Range of Motion, Tremors Neurological: Yes: golf stud riveter II-XII NML intact, Fully Oriented, Alert, Motor Strength 5/5 Integumentary: Yes: Dry Lymphatic: Yes: Within Normal Limits - Diagnostic (1) Opioid dependence with withdrawal Current Visit: No Status: Acute (2) Alcohol dependence with uncomplicated withdrawal Current Visit: No Status: Acute (3) Cocaine dependence Current Visit: No Status: Acute Qualifiers: Substance use status: uncomplicated Qualified Code(s): F14.20 - Cocaine dependence, uncomplicated (4) Insomnia Current Visit: No Status: Acute (5) Nicotine dependence Current Visit: No Status: Acute Qualifiers: Nicotine product type: cigarettes Substance use status: uncomplicated Qualified Code(s): F17.210 - Nicotine dependence, cigarettes, uncomplicated (6) Hypertension Current Visit: No Status: Chronic Qualifiers: Hypertension type: essential hypertension Qualified Code(s): I10 - Essential (primary) hypertension Cleared for Admission S - Detox or Rehab [facility] Level of Care: Medically Managed Detox Regimen/Protocol: Methadone/Librium Breathalyzer - Breathalyzer Breathalyzer: 0 Urine Drug Screen - Test Device Lot number: [id number] Expiration date: 08/24/21 - Control Is test valid?: Yes - Results Drug screen NEGATIVE: No Urine drug screen results: CECI-Cocaine, MOP-Opiates Inpatient Rehab Admission - Rehab Decision to Admit Inpatient rehab admission?: No
[2019-11-18] MEDS ORDERED: MENTHOL/PHENOL 1 EACH UD MM PRN (13:50)
[2019-11-18] MEDS ORDERED: MELATONIN 5 MG TABLETS PO PRN (13:50)
[2019-11-18] MEDS ORDERED: ACETAMINOPHEN 325 MG TABLET (FP) PO PRN ×2 (13:50)
[2019-11-18] MEDS ORDERED: MAG HYDROX/AL HYDROX/SIMETH 30 ML UNIT-DOSE CUP PO PRN (13:50)
[2019-11-18] MEDS ORDERED: cloNIDine HCL 0.1 MG TABLET PO PRN (13:50)
[2019-11-18] MEDS ORDERED: chlordiazePOXIDE HCL 25 MG CAPSULE PO PRN (13:50)
[2019-11-18] MEDS ORDERED: MAGNESIUM HYDROX 2400MG/30ML ORAL SUSPENSION 30 ML CUP PO PRN (13:50)
[2019-11-18] MEDS ORDERED: hydrOXYzine PAMOATE 25 MG CAPSULE (FP) PO PRN (13:50)
[2019-11-18] MEDS ORDERED: METHOCARBAMOL 500 MG TABLET PO PRN (13:50)
[2019-11-18] MEDS ORDERED: IBUPROFEN 400 MG TABLET (FP) PO PRN (13:50)
[2019-11-18] MEDS ORDERED: MAGNESIUM CITRATE 300 ML BOTTLE PO PRN (13:50)
[2019-11-18] MEDS ORDERED: BISMUTH SUBSALICYLATE 262 MG/15 ML BTL PO PRN (13:50)
[2019-11-18] MEDS ORDERED: METHADONE HCL 10 MG TABLET (FOR DETOX USE ONLY) PO ONE (14:30)
[2019-11-18] MEDS: amLODIPine BESYLATE 10 MG TABLET (FP) PO SCH (16:08)
[2019-11-18] MEDS: NICOTINE 21 MG/24 HOURS TOPICAL PATCH TD SCH (16:08)
[2019-11-18] MEDS: chlordiazePOXIDE HCL 25 MG CAPSULE PO SCH ×2 (17:26→22:26)
[2019-11-18 18:14] LABS: ALBUMIN 3.6 g/dl (3.4-5.0); BILIRUBIN,TOTAL 0.8 mg/dL (0.2-1); BLOOD UREA NITROGEN 9.2 mg/dL (7-18); CREATININE 0.7 mg/dL (0.55-1.3); POTASSIUM 3.9 mmol/L (3.5-5.1); TOT PROT 7.3 g/dl (6.4-8.2)
[2019-11-18 19:03] LABS: HEMATOCRIT 41.8 % (35.4-49); HEMOGLOBIN 13.9 GM/dL (11.7-16.9); MCH 30.2 pg (25.7-33.7); MCHC 33.2 g/dl (32.0-35.9); PLATELET COUNT 185 K/MM3 (134-434); RBC 4.59 M/mm3 (4.00-5.60); RDW 15.8 % (11.9-15.9); WHITE BLOOD COUNT 6.4 K/mm3 (4.0-10.0)
[2019-11-18] MEDS: THIAMINE HCL 100 MG TABLET (FP) PO SCH (22:26)
[2019-11-19] MEDS: chlordiazePOXIDE HCL 25 MG CAPSULE PO SCH ×4 (05:48→22:08)
[2019-11-19] MEDS ORDERED: METHADONE HCL 10 MG TABLET (FOR DETOX USE ONLY) ONE (08:53)
[2019-11-19] MEDS ORDERED: METHADONE HCL 5 MG TABLET (FOR DETOX USE ONLY) ONE (08:54)
[2019-11-19] MEDS ORDERED: METHADONE (DETOX) 20 MG, METHADONE (DETOX) 5 MG PO ONE (10:00)
[2019-11-19] MEDS: amLODIPine BESYLATE 10 MG TABLET (FP) PO SCH (10:16)
[2019-11-19] MEDS: PRENATAL VITAMINS W/ FOLIC ACID TABLET (FP) PO SCH (10:16)
[2019-11-19] MEDS: NICOTINE 21 MG/24 HOURS TOPICAL PATCH TD SCH (11:04)
--- NOTE | 2019-11-19 12:57 | PN ---
[facility] CIWA - CIWA Score Nausea/Vomitin-Mild Nausea/No Vomiting Muscle Tremors: 4-Moderate,w/Arms Extend Anxiety: 3 Agitation: 1-Slight > Activity Paroxysmal Sweats: 2 Orientation: 0-Oriented Tacttile Disturbances: 0-None Auditory Disturbances: 0-None Visual Disturbances: 1-Very Mild Sensitivity Headache: 0-None Present CIWA-Ar Total Score: 12 S COWS - Scale Resting Pulse: 0= [place] 80 or Below Sweatin= Chills/Flushing Restless Observation: 0= Sits Still Pupil Size: 1= Pupils >than Normal Bone or Joint Aches: 1= Mild Discomfort Runny Nose/ Eye Tearin= None GI Upset > 30mins: 2= Nausea/Diarrhea Tremor Observation of Outstretched Hands: 2= Slight Tremor Visible Yawning Observation: 0= None Anxiety or Irritability: 2=Irritable/Anxious Goose Flesh Skin: 3=Piloerection COWS Score: 12 S Progress Note (SOAP) Subjective: 54 years old male admitted on 11/18/19 for alcohol and opiate withdrawal sx management treating with librium and methadone detox regiments Mr Mast states that librium 50 mg is too much "sleep all the time" change librium 50 mg po to 25 mg po Objective: 11/19/19 12:59 Vital Signs Temperature 97.7 F 11/19/19 08:56 Pulse Rate 61 11/19/19 08:56 Respiratory Rate 18 11/19/19 08:56 Blood Pressure 136/72 11/19/19 08:56 O2 Sat by Pulse Oximetry (%) Laboratory Last Values WBC 6.4 K/mm3 (4.0-10.0) 11/18/19 13:55 RBC 4.59 M/mm3 (4.00-5.60) 11/18/19 13:55 Hgb 13.9 GM/dL (11.7-16.9) 11/18/19 13:55 Hct 41.8 % (35.4-49) 11/18/19 13:55 MCV 91.0 fl (80-96) 11/18/19 13:55 MCH 30.2 pg (25.7-33.7) 11/18/19 13:55 MCHC 33.2 g/dl (32.0-35.9) 11/18/19 13:55 RDW 15.8 % (11.9-15.9) 11/18/19 13:55 Plt Count 185 K/MM3 (134-434) 11/18/19 13:55 MPV 9.0 fl (7.5-11.1) 11/18/19 13:55 Sodium 137 mmol/L (136-145) 11/18/19 13:55 Potassium 3.9 mmol/L (3.5-5.1) 11/18/19 13:55 Chloride 103 mmol/L (98-107) 11/18/19 13:55 Carbon Dioxide 28 mmol/L (21-32) 11/18/19 13:55 Anion Gap 6 MMOL/L (8-16) L 11/18/19 13:55 BUN 9.2 mg/dL (7-18) 11/18/19 13:55 Creatinine 0.7 mg/dL (0.55-1.3) 11/18/19 13:55 Est GFR (CKD-EPI)AfAm 122.27 11/18/19 13:55 Est GFR (CKD-EPI)NonAf 105.50 11/18/19 13:55 Random Glucose 102 mg/dL (74-106) 11/18/19 13:55 Calcium 9.0 mg/dL (8.5-10.1) 11/18/19 13:55 Total Bilirubin 0.8 mg/dL (0.2-1) 11/18/19 13:55 AST 23 U/L (15-37) 11/18/19 13:55 ALT 22 U/L (13-61) 11/18/19 13:55 Alkaline Phosphatase 93 U/L (45-117) 11/18/19 13:55 Total Protein 7.3 g/dl (6.4-8.2) 11/18/19 13:55 Albumin 3.6 g/dl (3.4-5.0) 11/18/19 13:55 RPR Titer Nonreactive (NONREACTIVE) 11/18/19 13:55 lab noted Assessment: 11/19/19 12:59 alcohol and opiate withdrawal Plan: librium and methadone regiments
[2019-11-19 13:46] LABS: PH,URINE 7.5 (5.0-8.0); URINE APPEARANCE CLEAR; URINE BILIRUBIN NEGATIVE (NEGATIVE); URINE COLOR YELLOW; URINE GLUCOSE (UA) NEGATIVE (NEGATIVE); URINE KETONE NEGATIVE (NEGATIVE); URINE LEUK ESTERASE NEGATIVE (NEGATIVE); URINE NITRITE NEGATIVE (NEGATIVE); URINE PROTEIN NEGATIVE (NEGATIVE); URINE UROBILINOGEN 0.2 mg/dL (0.2-1.0)
--- NOTE | 2019-11-19 14:31 | CONSULT ---
[facility] Psychiatric Consult - Data Date of interview: 11/19/19 Admission source: [facility] Identifying data: Revisit to [facility] and admission to [address] [place] [address] for this 54 y/o AA male se;f-referred for detoaxification treatment. LOS issues : alcohol, cocaine, heroin, nicotine. Patient is single, a father of two (lost a son in February 2016), homeless, unemployed and currently without financial support. Substance Abuse History: Discussed with the patient. Details in current [facility] report as follows : Smoking history: Current every day smoker. Have you smoked in the past 12 months: Yes. Aproximately how many cigarettes per day: 15. Hx Chewing Tobacco Use: No. Initiated information on smoking cessation: Yes. ' Breaking Loose' booklet given: 11/18/19. - Substance & Tx. History. Hx Alcohol Use: Yes. Hx Substance Use: Yes. Substance Use Type: Alcohol, Cocaine , Heroin. Hx Substance Use Treatment: Yes ([facility] 03/13). - Substances abused. Alcohol. Substance route: Oral. Frequency: Daily. Amount used: 6- 8 cans of beer, 1 pint of vodka. Age of first use: 16. Date of last use: 11/18. Heroin. Substance route: Inhalation. Frequency: Daily. Amount used: 8-10 bags. Age of first use: 38. Date of last use: 11/18/19. Cocaine. Substance route: Inhalation. Frequency: 3-6 times per week. Amount used: 1 gram. Age of first use: 33. Date of last use: 11/17/19 Medical History: Medical profile is remarkable for hypertension. Psychiatric History: Patient presents with a history of multiple psychiatric hospitalizations ([facility], [facility], [facility], [facility] and [facility]).Mr Pro has been diagnosed with PTSD + MDD. Patient is no longer affiliated with [facility] [employer] for psychiatric aftercare. Has been lost to follow-up for weeks. Chronic non-adherence to medications. Patient denies suicide attempts. Physical/Sexual Abuse/Trauma History: Stressors : of son (2015), homelessness, unemployment, lack of a support network and financial difficulties. Additional Comment: Urine drug screen results: CECI-Cocaine, MOP-Opiates. Noted. Mental Status Exam - Mental Status Exam Alert and Oriented to: Time, Place, Person Cognitive Function: Good Patient Appearance: Well Groomed Mood: Nervous, Withdrawn Affect: Mood Congruent, Constricted Patient Behavior: Fatigued, Appropriate, Cooperative Speech Pattern: Clear, Appropriate Voice Loudness: Normal Thought Process: Intact, Goal Oriented Thought Disorder: Not Present Hallucinations: Denies Suicidal Ideation: Denies Homicidal Ideation: Denies Insight/Judgement: Poor Sleep: Poorly, Difficulty falling asleep Appetite: Good Gait/Station: Normal Psychiatric Findings - Problem List (Waddy 1, 2,3) (1) Alcohol dependence with uncomplicated withdrawal Current Visit: Yes Status: Acute (2) Opioid dependence with withdrawal Current Visit: Yes Status: Acute (3) Cocaine dependence Current Visit: Yes Status: Chronic Qualifiers: Substance use status: uncomplicated Qualified Code(s): F14.20 - Cocaine dependence, uncomplicated (4) Nicotine dependence Current Visit: Yes Status: Chronic Qualifiers: Nicotine product type: cigarettes Substance use status: uncomplicated Qualified Code(s): F17.210 - Nicotine dependence, cigarettes, uncomplicated (5) Substance induced mood disorder Current Visit: Yes Status: Chronic (6) PTSD (post-traumatic stress disorder) Current Visit: Yes Status: Chronic Comment: Historical diagnosis. (7) Insomnia Current Visit: Yes Status: Chronic (8) Non-compliance Current Visit: Yes Status: Chronic - Initial Treatment Plan Initial Treatment Plan: Psychoeducation. Sleep hygiene. Detoxification. Support. MAT services offered to the patient : expresses no interest. AA/NA meetings. Mr Mast requests to start remeron for management of insomnia. Remeron 15 mg po hs. Side effects/benefits discussed with patient. Consent ( verbal) granted to MD. Seay.
[2019-11-19] MEDS ORDERED: MIRTAZAPINE 15 MG TABLET (FP) PO SCH (22:00)
[2019-11-19] MEDS: THIAMINE HCL 100 MG TABLET (FP) PO SCH (22:08)
[2019-11-20] MEDS: chlordiazePOXIDE HCL 25 MG CAPSULE PO SCH ×2 (06:06→10:41)
[2019-11-20] MEDS ORDERED: METHADONE HCL 10 MG TABLET (FOR DETOX USE ONLY) PO ONE (10:00)
[2019-11-20 10:04] VITALS: BP 143/79; PULSE 73; TEMP 96.1
[2019-11-20] MEDS: NICOTINE 21 MG/24 HOURS TOPICAL PATCH TD SCH (10:41)
[2019-11-20] MEDS: PRENATAL VITAMINS W/ FOLIC ACID TABLET (FP) PO SCH (10:41)
[2019-11-20] MEDS: amLODIPine BESYLATE 10 MG TABLET (FP) PO SCH (10:41)
--- NOTE | 2019-11-20 11:07 | DS ---
[facility] Detox Discharge Summary Admission Date: 11/18/19 Discharge Date: 11/20/19 - History Present History: Alcohol Dependence, Opioid Dependence Additional Comments: 54 years old male admitted on 11/18/19 for alcohol and opiate withdrawal sx management treated with librium and methadone detox regiments Mr Mast insists to leave the detox unit today due to "I do not like the rules and policies here" patient refuses to discuss further regarding rules and policies case discussed with the nurse against medical advice is appropriated overhead page Ms Almanzar as per AMA protocol seen by psychiatrist kaylan dixon patient is alert oriented x 3 speech clearly coherently ambulating steady gait Pertinent Past History: time for discharge: 54 minutes "I need to rest" "I do not want the medication" "I do no need the medication" - Physical Exam Results Vital Signs: Vital Signs Temperature 96.1 F L 11/20/19 10:03 Pulse Rate 73 11/20/19 10:03 Respiratory Rate 18 11/20/19 10:03 Blood Pressure 143/79 11/20/19 10:03 O2 Sat by Pulse Oximetry (%) Pertinent Admission Physical Exam Findings: alcohol and opiate withdrawal Laboratory Last Values WBC 6.4 K/mm3 (4.0-10.0) 11/18/19 13:55 RBC 4.59 M/mm3 (4.00-5.60) 11/18/19 13:55 Hgb 13.9 GM/dL (11.7-16.9) 11/18/19 13:55 Hct 41.8 % (35.4-49) 11/18/19 13:55 MCV 91.0 fl (80-96) 11/18/19 13:55 MCH 30.2 pg (25.7-33.7) 11/18/19 13:55 MCHC 33.2 g/dl (32.0-35.9) 11/18/19 13:55 RDW 15.8 % (11.9-15.9) 11/18/19 13:55 Plt Count 185 K/MM3 (134-434) 11/18/19 13:55 MPV 9.0 fl (7.5-11.1) 11/18/19 13:55 Sodium 137 mmol/L (136-145) 11/18/19 13:55 Potassium 3.9 mmol/L (3.5-5.1) 11/18/19 13:55 Chloride 103 mmol/L (98-107) 11/18/19 13:55 Carbon Dioxide 28 mmol/L (21-32) 11/18/19 13:55 Anion Gap 6 MMOL/L (8-16) L 11/18/19 13:55 BUN 9.2 mg/dL (7-18) 11/18/19 13:55 Creatinine 0.7 mg/dL (0.55-1.3) 11/18/19 13:55 Est GFR (CKD-EPI)AfAm 122.27 11/18/19 13:55 Est GFR (CKD-EPI)NonAf 105.50 11/18/19 13:55 Random Glucose 102 mg/dL (74-106) 11/18/19 13:55 Calcium 9.0 mg/dL (8.5-10.1) 11/18/19 13:55 Total Bilirubin 0.8 mg/dL (0.2-1) 11/18/19 13:55 AST 23 U/L (15-37) 11/18/19 13:55 ALT 22 U/L (13-61) 11/18/19 13:55 Alkaline Phosphatase 93 U/L (45-117) 11/18/19 13:55 Total Protein 7.3 g/dl (6.4-8.2) 11/18/19 13:55 Albumin 3.6 g/dl (3.4-5.0) 11/18/19 13:55 Urine Color Yellow 11/18/19 08:40 Urine Appearance Clear 11/18/19 08:40 Urine pH 7.5 (5.0-8.0) D 11/18/19 08:40 Ur Specific [place] 1.009 (1.010-1.035) L 11/18/19 08:40 Urine Protein Negative (NEGATIVE) 11/18/19 08:40 Urine Glucose (UA) Negative (NEGATIVE) 11/18/19 08:40 Urine Ketones Negative (NEGATIVE) 11/18/19 08:40 Urine Blood Negative (NEGATIVE) 11/18/19 08:40 Urine Nitrite Negative (NEGATIVE) 11/18/19 08:40 Urine Bilirubin Negative (NEGATIVE) 11/18/19 08:40 Urine Urobilinogen 0.2 mg/dL (0.2-1.0) 11/18/19 08:40 Ur Leukocyte Esterase Negative (NEGATIVE) 11/18/19 08:40 RPR Titer Nonreactive (NONREACTIVE) 11/18/19 13:55 lab noted - Treatment Hospital Course: Detox Protocol Followed Patient has Accepted a Rehab Referral to: [facility] - Medication Discharge Medications: Ambulatory Orders Amlodipine Besylate [Norvasc -] 10 mg PO DAILY #30 tablet 08/16/16 Cyclobenzaprine HCl [Flexeril -] 10 mg PO TID PRN #20 tablet 08/16/16 Clonidine HCl 0.2 mg PO BID 11/04/16 Mirtazapine [Remeron -] 30 mg PO HS 11/18/19 - Diagnosis (1) Alcohol dependence with uncomplicated withdrawal Status: Acute (2) Opioid dependence with withdrawal Status: Acute (3) Hypertension Status: Chronic Qualifiers: Hypertension type: essential hypertension Qualified Code(s): I10 - Essential (primary) hypertension (4) Nicotine dependence Status: Acute Qualifiers: Nicotine product type: cigarettes Substance use status: in withdrawal Qualified Code(s): F17.213 - Nicotine dependence, cigarettes, with withdrawal (5) Substance induced mood disorder Status: Suspected - AMA Did Patient Leave Against Medical Advice: Yes
[2019-11-20] MEDS ORDERED: LISINOPRIL 10 MG TABLET (FP) PO SCH (22:00)
[2019-11-21] MEDS ORDERED: chlordiazePOXIDE HCL 10 MG CAPSULE PO PRN
[2019-11-21] MEDS ORDERED: chlordiazePOXIDE HCL 10 MG CAPSULE PO SCH (05:00)
[2019-11-21] MEDS ORDERED: METHADONE (DETOX) 10 MG, METHADONE (DETOX) 5 MG PO ONE (10:00)
[2019-11-22] MEDS ORDERED: chlordiazePOXIDE HCL 10 MG CAPSULE PO SCH (05:00)
[2019-11-22] MEDS ORDERED: METHADONE HCL 10 MG TABLET (FOR DETOX USE ONLY) PO ONE (10:00)
[2019-11-23] MEDS ORDERED: chlordiazePOXIDE HCL 10 MG CAPSULE PO ONE (05:00)
[2019-11-23] MEDS ORDERED: METHADONE HCL 5 MG TABLET (FOR DETOX USE ONLY) PO ONE (06:00)
== END 2019-11-20 11:25 | disposition left against medical advice (07) | DRG 770 ==
LOC: YASAS 11:43 → Y3N 13:58
PROVIDERS: ADMIT Allergy & Immunology; ATTEND Allergy & Immunology
PROC: HZ2ZZZZ Detoxification Services for Substance Abuse Treatment (ICD-10-PCS; principal; 2019-11-18)
DX: F10.230 Alcohol dependence with withdrawal, uncomplicated (principal); F11.23 Opioid dependence with withdrawal; F14.20 Cocaine dependence, uncomplicated; F17.210 Nicotine dependence, cigarettes, uncomplicated; F19.24 Other psychoactive substance dependence with psychoactive substance-induced mood disorder; F43.10 Post-traumatic stress disorder, unspecified; G47.00 Insomnia, unspecified; Z91.19 Patient's noncompliance with other medical treatment and regimen
CPT/HCPCS: 36415; 80053; 81003; 85027; 86593; J0735

== ENCOUNTER 2021-10-26 09:29 | Inpatient (IN) | payer OTHER ==
[2021-10-26] MEDS ORDERED: MENTHOL/PHENOL 1 EACH UD MM PRN (10:36)
[2021-10-26] MEDS ORDERED: MAGNESIUM HYDROX 2400MG/30ML ORAL SUSPENSION 30 ML CUP PO PRN (10:36)
[2021-10-26] MEDS ORDERED: BISMUTH SUBSALICYLATE 262 MG/15 ML BTL PO PRN (10:36)
[2021-10-26] MEDS ORDERED: MAGNESIUM CITRATE 300 ML BOTTLE PO PRN (10:36)
[2021-10-26] MEDS ORDERED: NICOTINE 10 MG CARTRIDGE (INHALER) IH PRN (10:36)
[2021-10-26] MEDS ORDERED: methaDONE HCL 10 MG TABLET (FOR DETOX USE ONLY) PO ONE (10:36)
[2021-10-26] MEDS ORDERED: ONDANSETRON *ODT* 4 MG TABLET SL PRN (10:36)
[2021-10-26] MEDS ORDERED: cloNIDine HCL 0.1 MG TABLET PO PRN (10:36)
[2021-10-26] MEDS ORDERED: IBUPROFEN 400 MG TABLET (FP) PO PRN (10:36)
[2021-10-26] MEDS ORDERED: MAG HYDROX/AL HYDROX/SIMETH 30 ML UNIT-DOSE CUP PO PRN (10:36)
[2021-10-26] MEDS ORDERED: chlordiazePOXIDE HCL 25 MG CAPSULE PO PRN (10:36)
[2021-10-26] MEDS ORDERED: METHOCARBAMOL 500 MG TABLET PO PRN (10:36)
[2021-10-26] MEDS ORDERED: ACETAMINOPHEN 325 MG TABLET (FP) PO PRN ×2 (10:36)
[2021-10-26] MEDS: hydrOXYzine PAMOATE 25 MG CAPSULE (FP) PO SCH ×3 (15:15→22:37)
[2021-10-26 17:22] LABS: BLOOD UREA NITROGEN 20.1 mg/dL (7-18)
[2021-10-26 17:23] LABS: ALBUMIN 3.4 g/dl (3.4-5.0)
[2021-10-26 17:25] LABS: HEMATOCRIT 39.9 % (35.4-49); HEMOGLOBIN 12.7 GM/dL (11.7-16.9); MCH 29.2 pg (25.7-33.7); MCHC 31.8 g/dl (32.0-35.9); MEAN CELL VOLUME 91.8 fl (80-96); MEAN PLT VOLUME 8.3 fl (7.5-11.1); PLATELET COUNT 262 10^3/uL (134-434); RBC 4.35 M/mm3 (4.00-5.60); RDW 14.2 % (11.9-15.9); WHITE BLOOD COUNT 6.9 K/mm3 (4.0-10.0)
[2021-10-26 17:26] VITALS: BMI 19.4
[2021-10-26 17:26] LABS: CREATININE 0.8 mg/dL (0.55-1.3)
[2021-10-26 17:27] LABS: BILIRUBIN,TOTAL 0.6 mg/dL (0.2-1)
[2021-10-26 17:28] LABS: TOT PROT 7.3 g/dl (6.4-8.2)
[2021-10-26] MEDS: chlordiazePOXIDE HCL 25 MG CAPSULE PO SCH ×2 (18:20→22:34)
[2021-10-26] MEDS: THIAMINE HCL 100 MG TABLET (FP) PO SCH (22:34)
[2021-10-26] MEDS: MELATONIN 5 MG TABLETS PO SCH (22:34)
[2021-10-27] MEDS: chlordiazePOXIDE HCL 25 MG CAPSULE PO SCH ×4 (05:17→22:11)
[2021-10-27] MEDS: hydrOXYzine PAMOATE 25 MG CAPSULE (FP) PO SCH ×5 (05:17→22:11)
[2021-10-27] MEDS ORDERED: methaDONE HCL 10 MG TABLET (FOR DETOX USE ONLY) ONE (09:36)
[2021-10-27] MEDS ORDERED: PRENATAL VITAMINS W/ FOLIC ACID TABLET (FP) PO SCH (10:00)
[2021-10-27 21:42] VITALS: BP 177/95; PULSE 73; TEMP 96.6
[2021-10-27] MEDS: MELATONIN 5 MG TABLETS PO SCH (22:11)
[2021-10-27] MEDS: THIAMINE HCL 100 MG TABLET (FP) PO SCH (22:11)
[2021-10-28] MEDS ORDERED: chlordiazePOXIDE HCL 25 MG CAPSULE PO SCH (05:00)
[2021-10-28] MEDS: hydrOXYzine PAMOATE 25 MG CAPSULE (FP) PO SCH (05:18)
[2021-10-28] MEDS ORDERED: amLODIPine BESYLATE 10 MG TABLET (FP) PO SCH (10:00)
[2021-10-28] MEDS ORDERED: methaDONE HCL 10 MG TABLET (FOR DETOX USE ONLY) PO ONE (10:00)
[2021-10-29] MEDS ORDERED: chlordiazePOXIDE HCL 10 MG CAPSULE PO PRN
[2021-10-29] MEDS ORDERED: chlordiazePOXIDE HCL 10 MG CAPSULE PO SCH (05:00)
[2021-10-30] MEDS ORDERED: chlordiazePOXIDE HCL 10 MG CAPSULE PO SCH (05:00)
[2021-10-30] MEDS ORDERED: methaDONE HCL 10 MG TABLET (FOR DETOX USE ONLY) PO ONE (10:00)
[2021-10-31] MEDS ORDERED: chlordiazePOXIDE HCL 10 MG CAPSULE PO ONE (05:00)
== END 2021-10-28 10:16 | disposition left against medical advice (07) | DRG 770 ==
LOC: YASAS 09:29 → Y3N 11:05
PROVIDERS: ADMIT Allergy & Immunology; ATTEND Allergy & Immunology
PROC: HZ2ZZZZ Detoxification Services for Substance Abuse Treatment (ICD-10-PCS; principal; 2021-10-26)
DX: F11.23 Opioid dependence with withdrawal (principal); F10.230 Alcohol dependence with withdrawal, uncomplicated; F17.210 Nicotine dependence, cigarettes, uncomplicated; F41.8 Other specified anxiety disorders; F32.A Depression, unspecified; F43.10 Post-traumatic stress disorder, unspecified; I10 Essential (primary) hypertension; R73.9 Hyperglycemia, unspecified
CPT/HCPCS: 36415; 80053; 85027; 86780; 93005; 93010; C9803; J0735; U0003; U0005

== ENCOUNTER 2022-07-04 18:38 | Inpatient (IN) | payer OTHER ==
[2022-07-04 19:33] VITALS: BMI 19.2
[2022-07-04] MEDS ORDERED: LOPERAMIDE HCL 2 MG CAPSULE PO PRN (20:12)
[2022-07-04] MEDS ORDERED: DICYCLOMINE HCL 10 MG CAPSULE PO PRN (20:12)
[2022-07-04] MEDS ORDERED: IBUPROFEN 400 MG TABLET (FP) PO PRN (20:12)
[2022-07-04] MEDS ORDERED: guaiFENesin 200 MG/10 ML 10 ML UNIT-DOSE CUPS PO PRN (20:12)
[2022-07-04] MEDS ORDERED: BISMUTH SUBSALICYLATE 524 MG/30 ML PO PRN (20:12)
[2022-07-04] MEDS ORDERED: MAG HYDROX/AL HYDROX/SIMETH 30 ML UNIT-DOSE CUP PO PRN (20:12)
[2022-07-04] MEDS ORDERED: MAGNESIUM CITRATE 300 ML BOTTLE PO PRN (20:12)
[2022-07-04] MEDS ORDERED: NICOTINE 10 MG CARTRIDGE (INHALER) IH PRN (20:12)
[2022-07-04] MEDS ORDERED: NALOXONE HCL (KLOXXADO) 8 MG SPRAY NS PRN (20:12)
[2022-07-04] MEDS ORDERED: BENZOCAINE/MENTHOL (CHLORASEPTIC ) LOZENGE MM PRN (20:12)
[2022-07-04] MEDS ORDERED: IBUPROFEN 600 MG TABLET (FP) PO PRN (20:12)
[2022-07-04] MEDS ORDERED: P-EPHED 60MG/TRIPROLIDI 2.5MG TABLET PO PRN (20:12)
[2022-07-04] MEDS ORDERED: ONDANSETRON *ODT* 4 MG TABLET SL PRN (20:12)
[2022-07-04] MEDS ORDERED: NICOTINE POLACRILEX 2 MG GUM BUC PRN (20:12)
[2022-07-04] MEDS ORDERED: ACETAMINOPHEN 325 MG TABLET (FP) PO PRN ×2 (20:12)
[2022-07-04] MEDS ORDERED: hydrOXYzine PAMOATE 25 MG CAPSULE (FP) PO PRN (20:12)
[2022-07-04] MEDS ORDERED: MAGNESIUM HYDROX 2400MG/30ML ORAL SUSPENSION 30 ML CUP PO PRN (20:12)
[2022-07-04] MEDS ORDERED: MELATONIN 5 MG TABLETS PO PRN (20:12)
[2022-07-04] MEDS ORDERED: NALOXONE HCL 0.4 MG/ML VIAL IM PRN (20:12)
[2022-07-04] MEDS ORDERED: AMMONIUM LACTATE 12% LOTION 225 GM BOTTLE TP PRN (20:20)
[2022-07-04] MEDS ORDERED: VITAMINS A AND D TOPICAL OINTMENT 60 GM TUBE TP PRN (20:20)
[2022-07-04] MEDS ORDERED: cloNIDine HCL 0.1 MG TABLET PO PRN (20:24)
[2022-07-04] MEDS ORDERED: methaDONE HCL 10 MG TABLET (FOR DETOX USE ONLY) PO ONE (23:00)
[2022-07-04] MEDS: THIAMINE HCL 100 MG TABLET (FP) PO SCH (23:13)
[2022-07-04] MEDS: METHOCARBAMOL 500 MG TABLET PO PRN (23:13)
[2022-07-05 10:17] LABS: HEMATOCRIT 40.2 % (35.4-49); HEMOGLOBIN 13.4 GM/dL (11.7-16.9); MCH 30.9 pg (25.7-33.7); MCHC 33.2 g/dl (32.0-35.9); MEAN CELL VOLUME 93.2 fl (80-96); PLATELET COUNT 212 10^3/uL (134-434); RBC 4.32 M/mm3 (4.00-5.60); RDW 15.1 % (11.9-15.9); WHITE BLOOD COUNT 7.8 K/mm3 (4.0-10.0)
[2022-07-05 10:35] LABS: ALBUMIN 3.3 g/dl (3.4-5.0); BLOOD UREA NITROGEN 18.6 mg/dL (7-18); CALCIUM 8.6 mg/dL (8.5-10.1)
[2022-07-05 10:38] LABS: CREATININE 0.7 mg/dL (0.55-1.3)
[2022-07-05 10:40] LABS: BILIRUBIN,TOTAL 0.4 mg/dL (0.2-1)
[2022-07-05] MEDS: chlordiazePOXIDE HCL 25 MG CAPSULE PO PRN (10:40)
[2022-07-05] MEDS: amLODIPine BESYLATE 10 MG TABLET (FP) PO SCH (10:40)
[2022-07-05] MEDS: PRENATAL VITAMINS W/ FOLIC ACID TABLET (FP) PO SCH (10:40)
[2022-07-05] MEDS: NICOTINE 21 MG/24 HOURS TOPICAL PATCH TD SCH (11:14)
[2022-07-05] MEDS: METHOCARBAMOL 500 MG TABLET PO PRN (22:32)
[2022-07-05] MEDS: THIAMINE HCL 100 MG TABLET (FP) PO SCH (22:32)
[2022-07-06] MEDS: chlordiazePOXIDE HCL 25 MG CAPSULE PO PRN (07:08)
[2022-07-06] MEDS ORDERED: methaDONE HCL 10 MG TABLET (FOR DETOX USE ONLY) PO ONE (10:00)
[2022-07-06] MEDS: METHOCARBAMOL 500 MG TABLET PO PRN (10:34)
[2022-07-06] MEDS: amLODIPine BESYLATE 10 MG TABLET (FP) PO SCH (10:34)
[2022-07-06] MEDS: PRENATAL VITAMINS W/ FOLIC ACID TABLET (FP) PO SCH (10:35)
[2022-07-06] MEDS: NICOTINE 21 MG/24 HOURS TOPICAL PATCH TD SCH (10:35)
[2022-07-06 12:54] VITALS: BP 164/80; PULSE 66; RESP 18; TEMP 97.5
[2022-07-08] MEDS ORDERED: methaDONE HCL 10 MG TABLET (FOR DETOX USE ONLY) PO ONE (10:00)
== END 2022-07-06 14:25 | disposition left against medical advice (07) | DRG 770 ==
LOC: YASAS 18:38 → Y3N 21:00
PROVIDERS: ADMIT Allergy & Immunology; ATTEND Surgery
PROC: HZ2ZZZZ Detoxification Services for Substance Abuse Treatment (ICD-10-PCS; principal; 2022-07-04)
DX: F11.23 Opioid dependence with withdrawal (principal); F10.230 Alcohol dependence with withdrawal, uncomplicated; F14.20 Cocaine dependence, uncomplicated; F17.210 Nicotine dependence, cigarettes, uncomplicated; F19.24 Other psychoactive substance dependence with psychoactive substance-induced mood disorder; G47.00 Insomnia, unspecified; I10 Essential (primary) hypertension; R63.4 Abnormal weight loss; Z68.1 Body mass index [BMI] 19.9 or less, adult; Z91.199 Patient's noncompliance with other medical treatment and regimen due to unspecified reason; Z59.00 Homelessness unspecified
CPT/HCPCS: 36415; 80053; 85027; 86780; C9803-CS; U0003; U0005

== ENCOUNTER 2024-02-07 13:04 | Inpatient (IN) | payer OTHER ==
[2024-02-07 15:54] VITALS: BMI 20.6
[2024-02-07] MEDS ORDERED: POLYETHYLENE GLYCOL (HEALTHYLAX) 3350 17 GM PACKET PO PRN (17:36)
[2024-02-07] MEDS ORDERED: BISMUTH SUBSALICYLATE 524 MG/30 ML PO PRN (17:36)
[2024-02-07] MEDS ORDERED: NALOXONE HCL 0.4 MG/ML VIAL IM PRN (17:36)
[2024-02-07] MEDS ORDERED: LOPERAMIDE HCL 2 MG CAPSULE PO PRN (17:36)
[2024-02-07] MEDS ORDERED: NALOXONE HCL (KLOXXADO) 8 MG SPRAY NS PRN (17:36)
[2024-02-07] MEDS ORDERED: MAGNESIUM HYDROX 2400MG/30ML ORAL SUSPENSION 30 ML CUP PO PRN (17:36)
[2024-02-07] MEDS ORDERED: BENZOCAINE/MENTHOL (CHLORASEPTIC ) LOZENGE MM PRN (17:36)
[2024-02-07] MEDS ORDERED: IBUPROFEN 600 MG TABLET (FP) PO PRN (17:36)
[2024-02-07] MEDS ORDERED: IBUPROFEN 400 MG TABLET (FP) PO PRN (17:36)
[2024-02-07] MEDS ORDERED: DICYCLOMINE HCL 10 MG CAPSULE PO PRN (17:36)
[2024-02-07] MEDS ORDERED: P-EPHED 60MG/TRIPROLIDI 2.5MG TABLET PO PRN (17:36)
[2024-02-07] MEDS ORDERED: NICOTINE POLACRILEX 2 MG GUM BUC PRN (17:36)
[2024-02-07] MEDS ORDERED: ONDANSETRON *ODT* 4 MG TABLET SL PRN (17:36)
[2024-02-07] MEDS ORDERED: BENZONATATE 200 MG CAPSULE PO PRN (17:36)
[2024-02-07] MEDS ORDERED: NICOTINE POLACRILEX 2 MG LOZENGE BC PRN (17:36)
[2024-02-07] MEDS ORDERED: ACETAMINOPHEN 325 MG TABLET (FP) PO PRN (17:36)
[2024-02-07] MEDS ORDERED: FLUTICASONE PROP 0.05% 16 GM NASAL SPRAY NS PRN (18:07)
[2024-02-07] MEDS ORDERED: amLODIPine BESYLATE 5 MG TABLET (FP) ONE (18:20)
[2024-02-07] MEDS: amLODIPine BESYLATE 10 MG TABLET (FP) PO SCH (18:22)
[2024-02-07] MEDS: hydrOXYzine PAMOATE 25 MG CAPSULE (FP) PO PRN (19:24)
[2024-02-07] MEDS: MELATONIN 5 MG TABLETS PO SCH (22:26)
[2024-02-07] MEDS: THIAMINE 100 MG TABLET PO SCH (22:26)
[2024-02-07] MEDS: METHOCARBAMOL 500 MG TABLET PO PRN (22:28)
[2024-02-08] MEDS: guaiFENesin 600 MG TABLET.ER (FP) PO PRN (02:42)
[2024-02-08] MEDS ORDERED: chlordiazePOXIDE HCL 25 MG CAPSULE PO PRN (10:08)
[2024-02-08] MEDS ORDERED: methaDONE HCL 40 MG DISPERSABLE TABLET PO SCH (10:30)
[2024-02-08] MEDS: methaDONE 80 MG, methaDONE 10 MG PO SCH (10:50)
[2024-02-08] MEDS: PRENATAL VITAMINS W/ FOLIC ACID TABLET (FP) PO SCH (10:51)
[2024-02-08] MEDS: chlordiazePOXIDE HCL 25 MG CAPSULE PO SCH (10:51)
[2024-02-08] MEDS: NICOTINE 7 MG/24 HOURS TOPICAL PATCH TD SCH (10:56)
[2024-02-10] MEDS: chlordiazePOXIDE HCL 25 MG CAPSULE PO SCH (05:39)
[2024-02-10 14:43] LABS: POTASSIUM 3.9 mmol/L (3.5-5.1)
[2024-02-10 14:45] LABS: HEMOGLOBIN 12.8 GM/dL (11.7-16.9); MCH 29.3 pg (25.7-33.7); MCHC 32.9 g/dl (32.0-35.9); MEAN CELL VOLUME 89.1 fl (80-96); MEAN PLT VOLUME 8.4 fl (7.5-11.1); PLATELET COUNT 224 10^3/uL (134-434); RBC 4.38 M/mm3 (4.00-5.60); RDW 18.1 % (11.9-15.9); WHITE BLOOD COUNT 7.1 K/mm3 (4.0-10.0)
[2024-02-10 14:46] LABS: CALCIUM 8.8 mg/dL (8.5-10.1)
[2024-02-10 14:50] LABS: ALBUMIN 3.2 g/dl (3.4-5.0)
[2024-02-10 14:54] LABS: BILIRUBIN,TOTAL 0.3 mg/dL (0.2-1); CREATININE 0.7 mg/dL (0.55-1.3); TOT PROT 7.2 g/dl (6.4-8.2)
[2024-02-11] MEDS ORDERED: chlordiazePOXIDE HCL 10 MG CAPSULE PO PRN
[2024-02-11] MEDS: chlordiazePOXIDE HCL 10 MG CAPSULE PO SCH (05:27)
[2024-02-12] MEDS: chlordiazePOXIDE HCL 10 MG CAPSULE PO SCH (05:26)
[2024-02-13] MEDS: chlordiazePOXIDE HCL 10 MG CAPSULE PO ONE (05:33)
[2024-02-13] MEDS: MAG HYDROX/AL HYDROX/SIMETH 30 ML UNIT-DOSE CUP PO PRN (07:07)
[2024-02-13 10:07] VITALS: BP 118/70; PULSE 61; RESP 17; TEMP 97
[2024-02-13] MEDS ORDERED: NALOXONE (NARCAN) HCL 4 MG/0.1 ML SPRAY NS ONE (17:46)
== END 2024-02-13 10:15 | disposition other institution (70) | DRG 773 ==
LOC: YASAS 13:04 → Y6N 18:19
PROVIDERS: ADMIT Allergy & Immunology; ATTEND Surgery
PROC: HZ2ZZZZ Detoxification Services for Substance Abuse Treatment (ICD-10-PCS; principal; 2024-02-07)
DX: F10.230 Alcohol dependence with withdrawal, uncomplicated (principal); F11.20 Opioid dependence, uncomplicated; F14.20 Cocaine dependence, uncomplicated; F17.210 Nicotine dependence, cigarettes, uncomplicated; F32.A Depression, unspecified; I10 Essential (primary) hypertension
CPT/HCPCS: 36415; 80053; 80305; 85027; 86780; 93005; 93010